=== PATIENT | female | born 1940 | race Caucasian/White ===

== ENCOUNTER 2017-07-24 23:53 | Observation (INO) | payer OTHER ==
[~2017-07-24] VITALS: Ht 160 cm; Wt 72.5 kg
[~2017-07-24 23:53] MED LIST: AMITIZA8 MICROGRA PO; CALCIUM 500 MG1 EACH PO; GLUCOSAMINE-CH1 EA27 PO; IBUPROFEN800 MG PO; MELATONIN10 M1 PO; NASONEX17 GM BOTH NARES; NORTRIPTYLINE H75 MG PO; RANITIDINE HCL300 MG PO; TOPAMAX100 MG PO; VERAPAMIL HCL120 MG PO; VITAMIN D1000 INTUN PO
[2017-07-25 00:17] LABS: HEMATOCRIT 40.8 % (36.0-46.0); HEMOGLOBIN 13.6 G/DL (11.9-15.5); MCH 29.4 PG (29.0-34.0); MCHC 33.3 G/DL (30.0-36.0); MCV 88.3 FL (83-99); PLATELET COUNT 203 K/uL (156-360); RBC DIS.WIDTH-CV 12.4 % (11.8-14.6); RBC DIS.WIDTH-SD 40.2 % (39-53); RED BLOOD COUNT 4.62 M/uL (3.80-5.20)
[2017-07-25 00:31] LABS: CHLORIDE 106 mEq/L (99-109); POTASSIUM 3.5 mEq/L (3.7-5.4); SODIUM 140 mEq/L (136-147)
[2017-07-25 00:32] LABS: GLUCOSE 134 mg/dL (70-99)
[2017-07-25 00:36] LABS: CREATININE 0.8 mg/dL (0.6-1.3); GFR ESTIMATE (CALCULATED) > 59 mL/min/
[2017-07-25 00:37] LABS: UREA NITROGEN (BUN) 19 mg/dL (9-23)
[2017-07-25 00:39] LABS: TROP-I INTERPRETATION NEGATIVE; TROPONIN-I < 0.01 ng/mL (0.0-0.30)
[2017-07-25] MEDS ORDERED: EZETIMIBE10 MG PO (01:38)
[2017-07-25] MEDS ORDERED: ELAVIL25 MG PO (01:38)
[2017-07-25] MEDS ORDERED: TOPIRAMATE100 MG PO (01:39)
[2017-07-25] MEDS ORDERED: MOMETASONE FURO17 GM BOTH NARES (01:40)
[2017-07-25] MEDS ORDERED: DENTA 5000 PLUS51 GM DT (01:41)
[2017-07-25] MEDS ORDERED: TOPIRAMATE25 M1 PO (01:43)
[2017-07-25 03:11] VITALS: BP 113/61
[2017-07-25] MEDS ORDERED: RANITIDINE HCL300 MG PO (06:58)
[2017-07-25 07:12] LABS: TROP-I INTERPRETATION NEGATIVE; TROPONIN-I < 0.01 ng/mL (0.0-0.30)
[2017-07-25 07:38] VITALS: BP 114/62
[2017-07-25] MEDS ORDERED: ASPIR-LOW81 MG PO (07:55)
[2017-07-25] MEDS ORDERED: Tums,OsCal PO (07:55)
[2017-07-25] MEDS ORDERED: NITROSTAT0.4 MG SL (07:55)
[2017-07-25 12:39] VITALS: BP 131/78
[2017-07-25 13:00] LABS: TROP-I INTERPRETATION NEGATIVE; TROPONIN-I < 0.01 ng/mL (0.0-0.30)
== END 2017-07-25 14:04 | disposition home or self-care (01) ==
LOC: EME → EDSEX 23:53 → EDBD 23:53 → EDOF 07-25 02:20 → 4SOUTH 07-25 02:20 → ENRESERV 07-25 02:22 → 4SOUTH 07-25 02:57
PROVIDERS: Physician Assistant
DX: R07.9 Chest pain, unspecified (principal); K21.9 Gastro-esophageal reflux disease without esophagitis; G43.809 Other migraine, not intractable, without status migrainosus; E78.5 Hyperlipidemia, unspecified; Z79.82 Long term (current) use of aspirin; Z82.49 Family history of ischemic heart disease and other diseases of the circulatory system; Z90.710 Acquired absence of both cervix and uterus
CPT/HCPCS: 71046; 80048; 84484; 85027; 93005; 99281; 99285; G0378; J1644